=== PATIENT | female | born 1955 | race Caucasian/White ===

== ENCOUNTER 2022-08-02 10:49 | Outpatient (CLI) | payer OTHER, SELFPAY | END 2022-08-02 10:50 | disposition home or self-care (01) | PROVIDERS: PCP Family Medicine; Visit Provider Family Medicine | DX: Z00.00 Encounter for general adult medical examination without abnormal findings (principal); E03.9 Hypothyroidism, unspecified; I10 Essential (primary) hypertension; R53.83 Other fatigue; E66.9 Obesity, unspecified; Z13.6 Encounter for screening for cardiovascular disorders | CPT/HCPCS: 80053; 80061; 84443 ==

== ENCOUNTER 2023-08-12 14:57 | Outpatient (CLI) | payer OTHER, SELFPAY | END 2023-08-12 14:58 | disposition home or self-care (01) | PROVIDERS: PCP Family Medicine; Visit Provider Family Medicine | DX: E03.9 Hypothyroidism, unspecified (principal); I10 Essential (primary) hypertension; E66.9 Obesity, unspecified; Z11.59 Encounter for screening for other viral diseases | CPT/HCPCS: 80053; 80061; 82043; 82570; 84439; 84443; 86803 ==

== ENCOUNTER 2023-10-09 14:15 | Outpatient (CLI) | payer OTHER, SELFPAY | END 2023-10-09 14:16 | disposition home or self-care (01) | LOC: NFLDREF 10-10 08:20 | PROVIDERS: PCP Family Medicine; Referring Provider Family Medicine; Visit Provider Family Medicine | DX: E03.9 Hypothyroidism, unspecified (principal); R73.09 Other abnormal glucose; E87.1 Hypo-osmolality and hyponatremia; R79.89 Other specified abnormal findings of blood chemistry; D75.839 Thrombocytosis, unspecified | CPT/HCPCS: 80053; 84443 ==

== ENCOUNTER 2024-07-02 09:42 | Outpatient (CLI) | payer OTHER, SELFPAY | END 2024-07-02 09:43 | disposition home or self-care (01) | PROVIDERS: PCP Family Medicine; Visit Provider Family Medicine | DX: E78.5 Hyperlipidemia, unspecified (principal); E87.1 Hypo-osmolality and hyponatremia; I10 Essential (primary) hypertension; R73.03 Prediabetes; E03.9 Hypothyroidism, unspecified; R79.89 Other specified abnormal findings of blood chemistry | CPT/HCPCS: 80053; 80061; 82043; 82570; 84443 ==